=== PATIENT | female | born 1990 | race Hispanic/Latino ===

== ENCOUNTER 2016-07-04 21:14 | Emergency (ER) | payer OTHER, SELFPAY ==
[2016-07-04] MEDS ORDERED: Ketorolac Tromethamine 30 MG/ML VIAL ONE (21:45)
[2016-07-04 22:06] LABS: #Basophils 0.1 thou/uL (0.0-0.2); #Eosinphils 0.3 thou/uL (0.0-0.7); #Lymphocytes 2.7 thou/uL (1.20-3.40); #Monocytes 0.6 thou/uL (0.11-0.59); #Neutrophils 3.8 thou/uL (1.40-6.50); %Basophils 1.5 % (0.0-1.0); %Eosinophils 4.5 % (0.0-10.0); Hematocrit 37.7 % (36.0-47.0); Mean Platelet Volume 5.8 fL (7.4-10.4); Red Blood Cell (RBC) Count 4.09 mill/uL (4.20-5.40); White Blood Cell (WBC) Count 7.6 thou/uL (4.8-10.8)
[2016-07-04 22:14] LABS: Bilirubin Negative (Negative); Blood, Urine Negative (Negative); Glucose, Urine (Dipstick) Negative (Negative); Ketone, Urine Negative (Negative); Nitrite Negative (Negative); Protein, Urine (Dipstick) Negative (Neg-Trace); Urobilinogen 0.2 mg/dL (0.2-1.0)
[2016-07-04 22:19] LABS: ALT (SGPT) 22 U/L (0-55); AST (SGOT) 18 U/L (5-34); Alkaline Phosphatase 58 U/L (40-150); Anion Gap 13 mmol/L (10-20); BUN (Urea Nitrogen) 14 mg/dL (7.0-18.7); Bilirubin, Total 0.3 mg/dL (0.2-1.2); Calc. Creatinine Clearance 0 mL/min (70-130); Calcium 8.9 mg/dL (7.8-10.44); Carbon Dioxide 20 mmol/L (22-29); Chloride 110 mmol/L (98-107); Estimated GFR-MDRD Greater than 90; Lipase 36 U/L (8-78); Protein, Total 7.2 g/dL (6.0-8.3)
[2016-07-04 22:24] LABS: Bacteria/HPF 2+ HPF (None Seen); RBC/HPF 0-3 HPF (0-3); Squamous Epithelial 0-3 HPF (0-3)
[2016-07-04] MEDS ORDERED: cefTRIAXone\\ROCEPHIN 1 GM VIAL ONE (23:47)
[2016-07-04] MEDS ORDERED: Sodium Chloride 0.9% 100 ML ONE (23:47)
--- NOTE | 2016-07-05 00:34 | ERRECORD ---
[facility] EMERGENCY RECORD HPI FLANK PAIN (21:54 MBRI) CHIEF COMPLAINT: Patient presents for evaluation of flank pain, on the right. HISTORIAN: History provided by patient. LOCATION FEMALE: Symptoms are localized, most severe in the right flank, Radiation, back to front, No migration of pain. QUALITY: Pain is sharp in nature, described as shooting. SEVERITY: Maximum severity of symptoms severe, Currently symptoms are moderate. TIME COURSE: Sudden onset of symptoms, 2, weeks ago, Symptoms are worsening, are intermittent, This episode started tonight and continued upon her arrival to the ED. No prior evaluation for this pain. She did call the ambulance for it one week ago and the paramedics told her it was possible PNA or anxiety per the patient. ASSOCIATED WITH FEMALE: No associated recent antibiotic use, No associated chills, No associated constipation, No associated diarrhea, No associated fever, Associated with flank pain, on the right, No associated groin pain, No associated hematemesis, No associated hematuria, Associated with loss of appetite, Associated with nausea, No associated trauma, No associated recent travel, No associated inability to tolerate oral intake, Associated with urinary tract infection signs or symptoms, frequency, No associated vomiting, No associated vaginal discharge, No associated vaginal bleeding. EXACERBATED BY: Patient's condition exacerbated by nothing. RELIEVED BY: Patient's condition relieved by nothing. ROS (21:54 MBRI) CONSTITUTIONAL: Negative constitutional review of systems, Historian denies chills, denies fever. EYES: Negative eye review of systems. ENT: Historian denies rhinorrhea, denies sore throat. CARDIOVASCULAR: Historian denies chest pain, denies dyspnea on exertion. RESPIRATORY: Historian denies cough, denies shortness of breath. GI: Negative gastrointestinal review of systems, Historian denies abdominal pain, denies diarrhea, denies nausea, denies vomiting. GENITOURINARY FEMALE: Historian reports dysuria, reports frequency, denies hematuria, denies incontinence, denies urine output changes, denies urinary retention. MUSCULOSKELETAL: Historian denies injury, Denies any musculoskeletal pain. SKIN: Negative skin review of systems, Historian denies skin changes. NEUROLOGIC: Negative neurologic review of systems, Historian denies focal weakness, denies sensory changes. HEMO/LYMPHATIC: Historian denies abnormal blood clotting, denies easy bruising. &a-1R&a+25V*p+0X*[id number]*c202B*c15G*c2P*p-0X&a-25V&a+1R Name: Izzy Rodriguez : 1990 F25 MedRec: [id number] AcctNum: [id number] Prepared: MonJul 05, 2016 09:29 by Interface Page 1 of 4 pMD [facility] EMERGENCY RECORD PAST MEDICAL HISTORY (21:31 MVIL) MEDICAL HISTORY: No past medical history, No past medical history. FEMALE SURGICAL HISTORY: Patient has no surgical history, Patient has no surgical history. PSYCHIATRIC HISTORY: Notes: HX OF ANXIETY, Psychiatric history includes, depression. SOCIAL HISTORY: Patient denies alcohol use, Patient denies drug use, Patient has no smoking history, Patient denies alcohol use, Patient denies drug use, Patient has no smoking history. KNOWN ALLERGIES No Known Allergies CURRENT MEDICATIONS (MonJul 05, 2016 00:19 CVAN) None VITAL SIGNS VITAL SIGNS: BP: 136/83, Pulse: 87, Resp: 20, Temp: 98.6 (Oral), Pain: 9, O2 sat: 98 on Room Air, Time: 07/04/2016 21:25. (21:25 MVIL) BP: 101/61, Pulse: 76, Resp: 18, Temp: 98.4 (Oral), O2 sat: 99 on Room Air, Time: 07/05/2016 00:13. (MonJul 05, 2016 00:13 CVAN) PHYSICAL EXAM (21:54 MBRI) CONSTITUTIONAL: Vital Signs Reviewed, Nursing notes reviewed. HEAD: Head exam included findings of head atraumatic, normocephalic. EYES: Eye exam included findings of eyelids normal to inspection, Pupils equally round and reactive to light, Extraocular muscles intact. ENT: Pharynx exam normal, Mouth exam normal. NECK: Neck exam normal, no cervical adenopathy, no tenderness. RESPIRATORY CHEST: Respiratory exam included findings of no respiratory distress, Breath sounds clear, No wheezing, No rales, No rhonchi. CARDIOVASCULAR: Cardiovascular exam included findings of heart rate regular rate and rhythm, Heart sounds normal, Carotids normal. ABDOMEN FEMALE: Abdominal exam included findings of abdomen nontender, Bowel sounds normal, no distension, no mass, no pulsatile masses, no peritoneal signs, no rigidity, no guarding, no rebound. BACK: Back exam included findings of normal inspection, Costovertebral angle tenderness, on the right. UPPER EXTREMITY: Upper extremity exam included findings of inspection normal, Radial pulse normal, no cyanosis, no clubbing, no edema. LOWER EXTREMITY: Lower extremity exam included findings of inspection normal, femoral pulses normal, no cyanosis, no clubbing, no edema, no tenderness noted. NEURO: Neuro exam findings include patient oriented to person, &a-1R&a+25V*p+0X*[id number]*c202B*c15G*c2P*p-0X&a-25V&a+1R Name: Izzy Rodriguez : 1990 F25 MedRec: [id number] AcctNum: [id number] Prepared: MonJul 05, 2016 09:29 by Interface Page 2 of 4 pMD [facility] EMERGENCY RECORD place and time, Speech normal, no focal motor deficits. SKIN: Skin exam included findings of skin warm, dry, and normal in color. RADIOLOGYINTERPRETATION (23:39 MBRI) ABDOMEN: Abdomen/pelvis CT scan, without contrast negative, no appendicitis, no diverticulitis, no kidney stones, no obstruction, no free air, no hydronephrosis. DRIER TENDER NAPHTHALENE: Preliminary review of CT scans by, Radiologist. MEDICATION ADMINISTRATION SUMMARY Drug Name: cefTRIAXone injection, Dose Ordered: 1 g, Route: IV Piggy Back, Status: Given, Time: 23:50 07/04/2016, Drug Name: ketorolac injection, Dose Ordered: 30 mg, Route: IV Push, Status: Given, Time: 21:58 07/04/2016, Drug Name: sodium chloride 0.9 % intravenous, Dose Ordered: 1 L, Route: IV Fluid Infusion, Status: Given, Time: 21:57 07/04/2016, Detailed record available in Medication Service section. DOCTOR NOTES (23:40 MBRI) TEXT: Pt with Abd pain/flank pain, improved at this time. Studies reveal no issues requiring inpt hosp treatment. Pt eval is currently benign and no surgical etiology suspected. No suspected appendicitis, GB disease, abscess, SBO, perforation, peritonitis, or vasc etiology suspected at this time. Plan of care discussed with pt and they state understanding of the reasons for follow-up and/or return to ED for eval. Pt is currently stable for d/c home. Will continue home abx with suspected UTI based on findings noted tonight. PROBLEM LIST No recorded problems DIAGNOSIS (23:44 MBRI) FINAL: PRIMARY: pyelonephritis, ADDITIONAL: back pain. PRESCRIPTION (23:43 MBRI) acetaminophen-codeine: TABLET : 300 mg-30 mg : ORAL : Quantity: 1 Unit: tab(s) Route: ORAL Schedule: every 4 hours prn Dispense: 20 May substitute. Refills: No Refills . NOTES: No refills. Cipro tablet: TABLET : 500 mg : ORAL : Quantity: 1 Unit: tab(s) Route: ORAL Schedule: 2 times a day Dispense: 14 May substitute. Refills: No Refills . NOTES: ^s=No refills No refills. Motrin: TABLET : 600 mg : ORAL : Quantity: 1 Unit: &a-1R&a+25V*p+0X*[id number]*c202B*c15G*c2P*p-0X&a-25V&a+1R Name: Izzy Rodriguez : 1990 F25 MedRec: [id number] AcctNum: [id number] Prepared: MonJul 05, 2016 09:29 by Interface Page 3 of 4 pMD [facility] EMERGENCY RECORD tab(s) Route: ORAL Schedule: every 6 hours PRN Dispense: 60 May substitute. Refills: No Refills POTENTIAL CONTRAINDICATED INTERACTION: ketorolac injection (ketorolac tromethamine) Override Rationale: Patient no longer on medication. NOTES: ^s=^s=No refills No refills No refills. DISPOSITION PATIENT: Disposition Type: Discharge, Disposition: *Discharge Home, Condition: Improved. (23:44 MBRI) Patient left the department. (MonJul 05, 2016 00:26 BRYON) Temple: BRYON=LUÍS Gottlieb Catherine MBRI=DO Dawn Matthew MVIL=LUÍS Alexander, Mary &a-1R&a+25V*p+0X*[id number]*c202B*c15G*c2P*p-0X&a-25V&a+1R Name: Izzy Rodriguez : 1990 F25 MedRec: [id number] AcctNum: [id number] Prepared: Kim Jul 05, 2016 09:29 by Interface Page 4 of 4 pMD MTDD
--- NOTE | 2016-07-05 00:43 | PICIS ---
[facility] EMERGENCY RECORD TRIAGE (MonJul 04, 2016 21:26 MVIL) TRIAGE NOTES: C/O RIGHT FLANK PAIN RADIATING TO RUQ ABD. NO URINARY SYMPTOMS. (MonJul 04, 2016 21:26 MVIL) PATIENT: NAME: Izzy Rodriguez, AGE: 25, GENDER: female, : Sat 1990, TIME OF GREET: MonJul 04, 2016 21:15, PREFERRED LANGUAGE: [place], ETHNICITY: or , ECODE BILLING MAP: [facility] ER, KG WEIGHT: 67.13, HEIGHT/LENGTH: 152.40cm, BMI: 28.90, , , PERSON ID: [id number], PCP: [facility]. (MonJul 04, 2016 21:26 MVIL) Zip Code: [address], PHONE: , PAYMENT: [employer] Self Pay. (21:39) COMPLAINT: RIGHT FLANK PAIN. (MonJul 04, 2016 21:26 MVIL) ADMISSION: URGENCY: 3 Urgent, ADMISSION SOURCE: Home, TRANSPORT: CAR, BED: ER -04. (MonJul 04, 2016 21:26 MVIL) ASSESSMENT: Assessment: C/O RIGHT FLANK PAIN RADIATING TO RUQ ABD X 1 WEEK INTERMITTENT. DENIES ANY N/V/D OR FEVER. AFEBRILE NOW., Symptoms began 06/27/2016 21:28, Symptoms began 1 week ago. (21:31 MVIL) PAIN: Patient complains of pain described as, penetrating, pressure, on a scale 0-10 patient rates pain as 9, Pain is intermittent, No aggravating factors, No relieving factors. (21:31 MVIL) IMMUNIZATIONS: Flu vaccine not up to date, Tetanus not up to date, Pneumococcal vaccine not up to date. (21:31 MVIL) SIRS SCORING: Heart Rate 55-109 (0), Temp range 96.8-101.1 (0), respiratory rate 12-24 (0), Mental Status altered: no (0). (21:31 MVIL) PROVIDERS: TRIAGE NURSE: Mary Alexander RN. (MonJul 04, 2016 21:26 MVIL) VITAL SIGNS: BP 136/83, Pulse 87, Resp 20, Temp 98.6, (Oral), Pain 9, O2 Sat 98, on Room Air, Time 07/04/2016 21:25. (21:25 MVIL) KNOWN ALLERGIES No Known Allergies CURRENT MEDICATIONS (MonJul 05, 2016 00:19 CVAN) None VITAL SIGNS VITAL SIGNS: BP: 136/83, Pulse: 87, Resp: 20, Temp: 98.6 (Oral), Pain: 9, O2 sat: 98 on Room Air, Time: 07/04/2016 21:25. (21:25 MVIL) BP: 101/61, Pulse: 76, Resp: 18, Temp: 98.4 (Oral), O2 sat: 99 on Room Air, Time: 07/05/2016 00:13. (MonJul 05, 2016 00:13 CVAN) NURSING ASSESSMENT: ABDOMEN (21:40 MVIL) CONSTITUTIONAL: Patient arrives, via hospital wheelchair, Gait steady, History obtained from patient, Patient appears comfortable, Patient cooperative, Patient alert, Oriented to person, place and time, Skin warm, Skin dry, Skin normal in color, Mucous membranes &a-1R&a+25V*p+0X*x9238H*c202B*c15G*c2P*p-0X&a-25V&a+1R Name: Izzy Rodriguez : 1990 F25 MedRec: [id number] AcctNum: [id number] Prepared: MonJul 05, 2016 00:37 by Interface Page 1 of 10 pMD [facility] EMERGENCY RECORD pink, Mucous membranes moist, Patient is well-groomed, Patient complains of C/O RIGHT FLANK PAIN, X1-2 WEEKS INTERMITTENT. PAIN: penetrating pain, pressure pain, to the right upper quadrant, to the right flank, Onset of pain 07/04/2016 21:42, on a scale 0-10 patient rates pain as 9, Pain exacerbated by nothing, Nothing has been tried to alleviate the pain. ABDOMEN: Abdomen assessment findings include abdomen symmetrical, tender, to the right flank, no associated nausea, no associated vomiting, no associated diarrhea. SAFETY: Side rails up, Cart/Stretcher in lowest position, Family at bedside, Call light within reach, Hospital ID band on. NURSING PROCEDURE: DISCHARGE NOTE (MonJul 05, 2016 00:19 KSPL) DISCHARGE: Patient discharged to home, ambulating without assistance, family driving, accompanied by //partner, Summary of Care printed/ provided, Patient requested and was provided an electronic copy of Discharge Instructions, Transition record given to patient, Discharge instructions given to patient, Discharge instructions given to spouse, Simple or moderate discharge teaching performed, by Vangie STALEY, follow up with pcp in 7 days, info on meds prescribed, take meds as prescribed., Prescriptions given and instructions on side effects given, Name of prescription(s) given: motrin, cipro, tylenol-codeine, Medication reconciliation form given, Above person(s) verbalized understanding of discharge instructions and follow-up care, Patient treated and evaluated by physician. BELONGINGS: Belongings and valuables with patient at time of discharge include:, Belongings remain with patient, Valuables remain with patient. NURSING PROCEDURE: IV PATIENT IDENITIFIER: Patient actively involved in identification process, Patient's identity verified by patient stating name, Patient's identity verified by hospital ID bracelet. (21:59 MVIL) IV SITE 1: IV therapy indicated for hydration, IV therapy indicated for medication administration, IV established. (21:59 MVIL) FOLLOW-UP SITE 1: After procedure, 2x3 ensure dressing applied. (21:59 MVIL) After procedure, no drainage at IV site, After procedure, no swelling at IV site, After procedure, no redness at IV site, IV discontinued, due to patient being discharged, catheter intact. (MonJul 05, 2016 00:16 CVAN) SAFETY: Side rails up, Cart/Stretcher in lowest position, Family at bedside, Call light within reach, Hospital ID band on. (21:59 MVIL) ORDER DETAILS Order Name: CBC with Differential, Status: Active, Time: 21:31 &a-1R&a+25V*p+0X*w6831T*c202B*c15G*c2P*p-0X&a-25V&a+1R Name: Izzy Rodriguez : 1990 F25 MedRec: [id number] AcctNum: [id number] Prepared: MonJul 05, 2016 00:37 by Interface Page 2 of 10 pMD [facility] EMERGENCY RECORD 07/04/2016, User: MBRI, - Ordered for: DO Dawn Matthew, - Entered by: DO Dawn Matthew - Shanti Jul 04, 2016 21:31, - Quantity: 1, Order Name: Comprehensive Metabolic Panel, Status: Active, Time: 21:31 07/04/2016, User: MBRI, - Ordered for: DO Dawn Matthew, - Entered by: DO Dawn Matthew - Shanti Jul 04, 2016 21:31, - Quantity: 1, Order Name: CT Stone Protocol, Status: Active, Time: 22:33 07/04/2016, User: MBRI, - Ordered for: DO Dawn Matthew, - Entered by: DO Dawn Matthew - Shanti Jul 04, 2016 22:33, - Quantity: 1, Order Name: Lipase, Status: Active, Time: 21:31 07/04/2016, User: MBRI, - Ordered for: DO Dawn Matthew, - Entered by: DO Dawn Matthew - Shanti Jul 04, 2016 21:31, - Quantity: 1, Order Name: Test, Urine (BHCG), Status: Active, Time: 21:31 07/04/2016, User: MBRI, - Ordered for: DO Dawn Matthew, - Entered by: DO Dawn Matthew - Shanti Jul 04, 2016 21:31, - Quantity: 1, Order Name: SALINE LOCK, Status: Done, Time: 21:58 07/04/2016, User: MVIL, - Ordered for: DO Dawn Matthew, - Entered by: DO Dawn Matthew - Shanti Jul 04, 2016 21:31, - Quantity: 1, Order Name: Urinalysis w/ Rflx Microscopic, Status: Active, Time: 21:31 07/04/2016, User: MBRI, - Ordered for: DO Dawn Matthew, - Entered by: DO Dawn Matthew - Shanti Jul 04, 2016 21:31, - Quantity: 1. MEDICATION ADMINISTRATION SUMMARY Drug Name: cefTRIAXone injection, Dose Ordered: 1 g, Route: IV Piggy Back, Status: Given, Time: 23:50 07/04/2016, Drug Name: ketorolac injection, Dose Ordered: 30 mg, Route: IV Push, Status: Given, Time: 21:58 07/04/2016, Drug Name: sodium chloride 0.9 % intravenous, Dose Ordered: 1 L, Route: IV Fluid Infusion, Status: Given, Time: 21:57 07/04/2016, Detailed record available in Medication Service section. MEDICATION SERVICE cefTRIAXone injection: Order: cefTRIAXone injection (ceftriaxone sodium) - Dose: 1 g : IV Piggy Back Ordered by: Jay Dawn DO Entered by: Jay Dawn DO MonJul 04, 2016 23:39 Documented as given by: Karen Gottlieb RN MonJul 04, 2016 23:50 &a-1R&a+25V*p+0X*d2754P*c202B*c15G*c2P*p-0X&a-25V&a+1R Name: Izzy Rodriguez : 1990 F25 MedRec: [id number] AcctNum: [id number] Prepared: MonJul 05, 2016 00:37 by Interface Page 3 of 10 pMD [facility] EMERGENCY RECORD Patient, Medication, Dose, Route and Time verified prior to administration. Amount given: 1 g, IV SITE #1 IVPB or drip, initial infusion, IVPB mixed in: 100ml, Fluid: 0.9NS, via primary tubing, at 200 ml/hr, Connections checked prior to administration, Line traced prior to administration, Catheter placement confirmed via flush prior to administration, IV site without signs or symptoms of infiltration during medication administration, No swelling during administration, No drainage during administration, IV flushed after administration, Correct patient, time, route, dose and medication confirmed prior to administration, Patient advised of actions and side-effects prior to administration, Allergies confirmed and medications reviewed prior to administration, Patient in position of comfort, Side rails up, Cart in lowest position, Family at bedside, Call light in reach. : Follow Up : _IV SITE #1:_, Medication infusion discontinued, on MonJul 05, 2016 00:13, 25 minutes, ., Total amount infused: 100 ml, IV Discontinued with catheter intact, IV Line flushed after administration. (MonJul 05, 2016 00:13 CVAN) ketorolac injection: Order: ketorolac injection (ketorolac tromethamine) - Dose: 30 mg : IV Push Ordered by: Jay Dawn DO Entered by: Jay Dawn DO MonJul 04, 2016 21:40 , Acknowledged by: Vangie Fischer RN MonJul 04, 2016 21:44 Documented as given by: Mary Alexander RN MonJul 04, 2016 21:58 Patient, Medication, Dose, Route and Time verified prior to administration. Amount given: 30MG, IV SITE #1 IVP, initial medication, Catheter placement confirmed via flush prior to administration, IV site without signs or symptoms of infiltration during medication administration, No swelling during administration, No drainage during administration, IV flushed after administration, Correct patient, time, route, dose and medication confirmed prior to administration, Patient advised of actions and side-effects prior to administration, Allergies confirmed and medications reviewed prior to administration, Patient in position of comfort, Side rails up, Cart in lowest position, Family at bedside. sodium chloride 0.9 % intravenous: Order: sodium chloride 0.9 % intravenous (0.9 % sodium chloride) - Dose: 1 L : IV Fluid Infusion Ordered by: Jay Dawn DO Entered by: Jay Dawn DO MonJul 04, 2016 21:40 , Acknowledged by: Vangie Fischer RN MonJul 04, 2016 21:44 Documented as given by: Mary Alexander RN MonJul 04, 2016 21:57 Patient, Medication, Dose, Route and Time verified prior to administration. Amount given: 1000MLS, IV SITE #1 IV fluids established for hydration, IV SITE #1 into right forearm, via primary tubing, Catheter placement confirmed via flush prior to administration, IV &a-1R&a+25V*p+0X*q5409R*c202B*c15G*c2P*p-0X&a-25V&a+1R Name: Izzy Rodriguez : 1990 F25 MedRec: [id number] AcctNum: [id number] Prepared: MonJul 05, 2016 00:37 by Interface Page 4 of 10 pMD [facility] EMERGENCY RECORD site without signs or symptoms of infiltration during medication administration, No swelling during administration, No drainage during administration, IV flushed after administration, Correct patient, time, route, dose and medication confirmed prior to administration, Patient advised of actions and side-effects prior to administration, Allergies confirmed and medications reviewed prior to administration. HPI FLANK PAIN (21:54 MBRI) CHIEF COMPLAINT: Patient presents for evaluation of flank pain, on the right. HISTORIAN: History provided by patient. LOCATION FEMALE: Symptoms are localized, most severe in the right flank, Radiation, back to front, No migration of pain. QUALITY: Pain is sharp in nature, described as shooting. SEVERITY: Maximum severity of symptoms severe, Currently symptoms are moderate. TIME COURSE: Sudden onset of symptoms, 2, weeks ago, Symptoms are worsening, are intermittent, This episode started tonight and continued upon her arrival to the ED. No prior evaluation for this pain. She did call the ambulance for it one week ago and the paramedics told her it was possible PNA or anxiety per the patient. ASSOCIATED WITH FEMALE: No associated recent antibiotic use, No associated chills, No associated constipation, No associated diarrhea, No associated fever, Associated with flank pain, on the right, No associated groin pain, No associated hematemesis, No associated hematuria, Associated with loss of appetite, Associated with nausea, No associated trauma, No associated recent travel, No associated inability to tolerate oral intake, Associated with urinary tract infection signs or symptoms, frequency, No associated vomiting, No associated vaginal discharge, No associated vaginal bleeding. EXACERBATED BY: Patient's condition exacerbated by nothing. RELIEVED BY: Patient's condition relieved by nothing. ROS (21:54 MBRI) CONSTITUTIONAL: Negative constitutional review of systems, Historian denies chills, denies fever. EYES: Negative eye review of systems. ENT: Historian denies rhinorrhea, denies sore throat. CARDIOVASCULAR: Historian denies chest pain, denies dyspnea on exertion. RESPIRATORY: Historian denies cough, denies shortness of breath. GI: Negative gastrointestinal review of systems, Historian denies abdominal pain, denies diarrhea, denies nausea, denies vomiting. GENITOURINARY FEMALE: Historian reports dysuria, reports frequency, denies hematuria, denies incontinence, denies urine output changes, denies urinary retention. MUSCULOSKELETAL: Historian denies injury, Denies any &a-1R&a+25V*p+0X*z4939M*c202B*c15G*c2P*p-0X&a-25V&a+1R Name: Izzy Rodriguez : 1990 F25 MedRec: [id number] AcctNum: [id number] Prepared: MonJul 05, 2016 00:37 by Interface Page 5 of 10 pMD [facility] EMERGENCY RECORD musculoskeletal pain. SKIN: Negative skin review of systems, Historian denies skin changes. NEUROLOGIC: Negative neurologic review of systems, Historian denies focal weakness, denies sensory changes. HEMO/LYMPHATIC: Historian denies abnormal blood clotting, denies easy bruising. PAST MEDICAL HISTORY (21:31 MVIL) MEDICAL HISTORY: No past medical history, No past medical history. FEMALE SURGICAL HISTORY: Patient has no surgical history, Patient has no surgical history. PSYCHIATRIC HISTORY: Notes: HX OF ANXIETY, Psychiatric history includes, depression. SOCIAL HISTORY: Patient denies alcohol use, Patient denies drug use, Patient has no smoking history, Patient denies alcohol use, Patient denies drug use, Patient has no smoking history. PHYSICAL EXAM (21:54 MBRI) CONSTITUTIONAL: Vital Signs Reviewed, Nursing notes reviewed. HEAD: Head exam included findings of head atraumatic, normocephalic. EYES: Eye exam included findings of eyelids normal to inspection, Pupils equally round and reactive to light, Extraocular muscles intact. ENT: Pharynx exam normal, Mouth exam normal. NECK: Neck exam normal, no cervical adenopathy, no tenderness. RESPIRATORY CHEST: Respiratory exam included findings of no respiratory distress, Breath sounds clear, No wheezing, No rales, No rhonchi. CARDIOVASCULAR: Cardiovascular exam included findings of heart rate regular rate and rhythm, Heart sounds normal, Carotids normal. ABDOMEN FEMALE: Abdominal exam included findings of abdomen nontender, Bowel sounds normal, no distension, no mass, no pulsatile masses, no peritoneal signs, no rigidity, no guarding, no rebound. BACK: Back exam included findings of normal inspection, Costovertebral angle tenderness, on the right. UPPER EXTREMITY: Upper extremity exam included findings of inspection normal, Radial pulse normal, no cyanosis, no clubbing, no edema. LOWER EXTREMITY: Lower extremity exam included findings of inspection normal, femoral pulses normal, no cyanosis, no clubbing, no edema, no tenderness noted. NEURO: Neuro exam findings include patient oriented to person, place and time, Speech normal, no focal motor deficits. SKIN: Skin exam included findings of skin warm, dry, and normal in color. LAB INTERPRETATION (23:39 MBRI) &a-1R&a+25V*p+0X*h4232U*c202B*c15G*c2P*p-0X&a-25V&a+1R Name: Izzy Rodriguez : 1990 F25 MedRec: [id number] AcctNum: [id number] Prepared: MonJul 05, 2016 00:37 by Interface Page 6 of 10 pMD [facility] EMERGENCY RECORD INTERPRETATION: I reviewed the lab results. EVENTS TRANSFER: Triage to Emergency Emergency Room -04. (MonJul 04, 2016 21:26 MVIL) Removed from Emergency Emergency Room -04. (MonJul 05, 2016 00:26 CVAN) RADIOLOGYINTERPRETATION (23:39 MBRI) ABDOMEN: Abdomen/pelvis CT scan, without contrast negative, no appendicitis, no diverticulitis, no kidney stones, no obstruction, no free air, no hydronephrosis. WAX CUTTER: Preliminary review of CT scans by, Radiologist. O2SAT INTERPRETATION (21:31 MBRI) O2SAT: Oxygen saturation interpretation: Normal. DOCTOR NOTES (23:40 MBRI) TEXT: Pt with Abd pain/flank pain, improved at this time. Studies reveal no issues requiring inpt hosp treatment. Pt eval is currently benign and no surgical etiology suspected. No suspected appendicitis, GB disease, abscess, SBO, perforation, peritonitis, or vasc etiology suspected at this time. Plan of care discussed with pt and they state understanding of the reasons for follow-up and/or return to ED for eval. Pt is currently stable for d/c home. Will continue home abx with suspected UTI based on findings noted tonight. PROBLEM LIST No recorded problems DIAGNOSIS (23:44 MBRI) FINAL: PRIMARY: pyelonephritis, ADDITIONAL: back pain. DISPOSITION PATIENT: Disposition Type: Discharge, Disposition: *Discharge Home, Condition: Improved. (23:44 MBRI) Patient left the department. (MonJul 05, 2016 00:26 CVAN) INSTRUCTION (23:46 MBRI) DISCHARGE: UTI PYELONEPHRITIS FEMALE ADULT. FOLLOWUP: [facility], [facility], [address] [facility] [place] [address], , Follow up with Primary Care Physician in 7 days. SPECIAL: Please return for any further issues or concerns, we would be happy to see you. We hope you feel better soon. Follow-up with your PCP in a week for recheck. PRESCRIPTION (23:43 MBRI) &a-1R&a+25V*p+0X*c9559A*c202B*c15G*c2P*p-0X&a-25V&a+1R Name: Izzy Rodriguez : 1990 F25 MedRec: [id number] AcctNum: [id number] Prepared: MonJul 05, 2016 00:37 by Interface Page 7 of 10 pMD [facility] EMERGENCY RECORD acetaminophen-codeine: TABLET : 300 mg-30 mg : ORAL : Quantity: 1 Unit: tab(s) Route: ORAL Schedule: every 4 hours prn Dispense: 20 May substitute. Refills: No Refills . NOTES: No refills. Cipro tablet: TABLET : 500 mg : ORAL : Quantity: 1 Unit: tab(s) Route: ORAL Schedule: 2 times a day Dispense: 14 May substitute. Refills: No Refills . NOTES: ^s=No refills No refills. Motrin: TABLET : 600 mg : ORAL : Quantity: 1 Unit: tab(s) Route: ORAL Schedule: every 6 hours PRN Dispense: 60 May substitute. Refills: No Refills POTENTIAL CONTRAINDICATED INTERACTION: ketorolac injection (ketorolac tromethamine) Override Rationale: Patient no longer on medication. NOTES: ^s=^s=No refills No refills No refills. IMAGING *SUPPLY CHARGE SHEET: Image captured from scanner. (MonJul 05, 2016 00:23 CVAN) *DISCHARGE INSTRUCTIONS RECEIPT: Image captured from scanner. (MonJul 05, 2016 00:27 KSPL) Page 2 added. Image captured from scanner. (MonJul 05, 2016 00:28 KSPL) RESULTS LABORATORY: Lipase Collection DT: MonJul 04, 2016 22:02, Lipase 36 U/L, Range (8-78). (22:24 MBRI) Comprehensive Metabolic Panel Collection DT: MonJul 04, 2016 22:02, Sodium 139 mmol/L, Range (136-145), Potassium 3.6 mmol/L, Range (3.5-5.1), *Chloride 110 - H mmol/L, Range (98-107), *Carbon Dioxide 20 - L mmol/L, Range (22-29), Anion Gap 13 mmol/L, Range (10-20), BUN (Urea Nitrogen) 14 mg/dL, Range (7.0-18.7), Creatinine 0.74 mg/dL, Range (0.6-1.1), Estimated GFR-MDRD Greater than 90 , Reference Range for Estimated GFR: Greater than 90, mL/min/1.73 m2 NOTE: The MDRD equation has not been validated for use, with the elderly (over 70 years of age), women, patients with, serious comorbid condition or persons with extremes of body size, muscle, mass, or nutritional status. , Glucose 101 mg/dL, Range (70-105), Calcium 8.9 mg/dL, Range (7.8-10.44), Bilirubin, Total 0.3 mg/dL, Range (0.2-1.2), &a-1R&a+25V*p+0X*p3141G*c202B*c15G*c2P*p-0X&a-25V&a+1R Name: Izzy Rodriguez : 1990 F25 MedRec: [id number] AcctNum: [id number] Prepared: MonJul 05, 2016 00:37 by Interface Page 8 of 10 pMD [facility] EMERGENCY RECORD Protein, Total 7.2 g/dL, Range (6.0-8.3), NOTE: Plasma values are generally 0.3 to 0.5 g/dL higher than serum values, due to the presence of fibrinogen. , Albumin 4.2 g/dL, Range (3.5-5.0), Globulin 3.0 g/dL, Range (2.4-3.5), Alb/Glob Ratio 1.4 g/dL, Range (1.2-2.2), Alkaline Phosphatase 58 U/L, Range (40-150), AST (SGOT) 18 U/L, Range (5-34), ALT (SGPT) 22 U/L, Range (0-55). (22:24 MBRI) Urinalysis w/ Rflx Microscopic Collection DT: MonJul 04, 2016 22:11, Color Light yellow , Range (Yellow), Clarity Clear , Range (Clear), Specific [place], Urine 1.020 , Range (1.005-1.030), pH, Urine 7.0 , Range (5.0-9.0), *Leukocyte Large - H , Range (Negative), Nitrite Negative , Range (Negative), Protein, Urine (Dipstick) Negative mg/dL, Range (Neg-Trace), Glucose, Urine (Dipstick) Negative mg/dL, Range (Negative), Ketone, Urine Negative mg/dL, Range (Negative), Urobilinogen 0.2 mg/dL, Range (0.2-1.0), Bilirubin Negative , Range (Negative), Blood, Urine Negative , Range (Negative). (22:24 MBRI) CBC with Differential Collection DT: MonJul 04, 2016 22:02, White Blood Cell (WBC) Count 7.6 thou/uL, Range (4.8-10.8), *Red Blood Cell (RBC) Count 4.09 - L mill/uL, Range (4.20-5.40), Hemoglobin 12.6 g/dL, Range (12.0-16.0), Hematocrit 37.7 %, Range (36.0-47.0), Mean Corpuscular Volume 92.3 fl, Range (81.0-99.0), Mean Corpuscular Hemoglobin 30.8 pg, Range (27.0-31.0), Mean Corpuscular HGB CONC 33.4 g/dL, Range (32.0-36.0), RBC Distribution Width 12.0 %, Range (11.5-14.5), Platelet Count 247 thou/uL, Range (130-400), *Mean Platelet Volume 5.8 - L fL, Range (7.4-10.4), %Neutrophils 50.2 %, Range (42.0-75.0), %Lymphocytes 35.8 %, Range (21.0-51.0), %Monocytes 8.0 %, Range (0.0-10.0), %Eosinophils 4.5 %, Range (0.0-10.0), *%Basophils 1.5 - H %, Range (0.0-1.0), #Neutrophils 3.8 thou/uL, Range (1.40-6.50), #Lymphocytes 2.7 thou/uL, Range (1.20-3.40), *#Monocytes 0.6 - H thou/uL, Range (0.11-0.59), #Eosinphils 0.3 thou/uL, Range (0.0-0.7), #Basophils 0.1 thou/uL, Range (0.0-0.2). (22:24 MBRI) Urine Microscopic Collection DT: MonJul 04, 2016 22:11, RBC/HPF 0-3 HPF, Range (0-3), *WBC/HPF 4-6 - H HPF, Range (0-3), Squamous Epithelial 0-3 HPF, Range (0-3), *Bacteria/HPF 2+ - H HPF, Range (None Seen). (22:32 MBRI) Urinalysis w/ Rflx Microscopic Collection DT: MonJul 04, 2016 22:11, Color Light yellow , Range (Yellow), &a-1R&a+25V*p+0X*y0764H*c202B*c15G*c2P*p-0X&a-25V&a+1R Name: Izzy Rodriguez : 1990 F25 MedRec: [id number] AcctNum: [id number] Prepared: MonJul 05, 2016 00:37 by Interface Page 9 of 10 pMD [facility] EMERGENCY RECORD Clarity Clear , Range (Clear), Specific [place], Urine 1.020 , Range (1.005-1.030), pH, Urine 7.0 , Range (5.0-9.0), *Leukocyte Large - H , Range (Negative), Nitrite Negative , Range (Negative), Protein, Urine (Dipstick) Negative mg/dL, Range (Neg-Trace), Glucose, Urine (Dipstick) Negative mg/dL, Range (Negative), Ketone, Urine Negative mg/dL, Range (Negative), Urobilinogen 0.2 mg/dL, Range (0.2-1.0), Bilirubin Negative , Range (Negative), Blood, Urine Negative , Range (Negative). (22:32 MBRI) Test, Urine (BHCG) Collection DT: MonJul 04, 2016 22:35, Test - Urine (BHCG) NEGATIVE , Range (NEGATIVE), Method of sensitivity- Indeterminant: results should be repeated, after 48 hours. Positive: results may be detected as early as 4-5 days before a first missed menses. Elimination of BHCG-, Elimination following first trimester D&C: 29-44 Days , Elimination following term : 8-24 Days , Specific Marathon 1.012 , Range (1.002-1.036), A dilute urine specimen may, not contain phlebotomy services representative levels of hCG. If is still, suspected, a first morning urine specimen OR a random blood specimen should, be obtained from the patient 48-72 hours later and re-tested. , . (22:43 [facility]) Temple: BRYON=LUÍS Gottlieb Catherine KSPL=LUÍS Fishcer, Vangie MBRI=DO Dawn Matthew MVIL=LUÍS Alexander, Mary &a-1R&a+25V*p+0X*u6185E*c202B*c15G*c2P*p-0X&a-25V&a+1R Name: Izzy Rodriguez : 1990 F25 MedRec: [id number] AcctNum: [id number] Prepared: MonJul 05, 2016 00:37 by Interface Page 10 of 10 pMD [facility] MEDICATION RECONCILIATION You were seen in the Emergency Department on: MonJul 04, 2016 KNOWN ALLERGIES No Known Allergies MEDICATIONS GIVEN WHILE IN THE EMERGENCY DEPARTMENT sodium chloride 0.9 % intravenous (0.9 % sodium chloride) - Dose: 1 liter(s) : IV Fluid Infusion ketorolac injection (ketorolac tromethamine) - Dose: 30 milligram(s) : IV Push cefTRIAXone injection (ceftriaxone sodium) - Dose: 1 gram(s) : IV Piggy Back HOME MEDICATIONS None Notes from the emergency department Reviewed with family PRESCRIPTIONS (3) Printed (3) acetaminophen-codeine : TABLET : 300 mg-30 mg : ORAL Quantity: 1, Unit: tab(s), Route: ORAL, Schedule: every 4 hours prn, Dispense: 20 Cipro tablet : TABLET : 500 mg : ORAL Quantity: 1, Unit: tab(s), Route: ORAL, Schedule: 2 times a day, Dispense: 14 &a-1R&a+25V*p+0X*[id number]*c202B*c15G*c2P*p-0X&a-25V&a+1R Name: Izzy Rodriguez : 1990 F25 MedRec: [id number] AcctNum: [id number] Prepared: MonJul 05, 2016 00:37 by Interface pMD MOHIT
--- NOTE | 2016-07-05 00:49 | PICIS ---
[facility] EMERGENCY RECORD TRIAGE (MonJul 04, 2016 21:26 MVIL) TRIAGE NOTES: C/O RIGHT FLANK PAIN RADIATING TO RUQ ABD. NO URINARY SYMPTOMS. (MonJul 04, 2016 21:26 MVIL) PATIENT: NAME: Izzy Rodriguez, AGE: 25, GENDER: female, : Sat 1990, TIME OF GREET: MonJul 04, 2016 21:15, PREFERRED LANGUAGE: [place], ETHNICITY: or , ECODE BILLING MAP: [facility] ER, KG WEIGHT: 67.13, HEIGHT/LENGTH: 152.40cm, BMI: 28.90, , , PERSON ID: [id number], PCP: [facility]. (MonJul 04, 2016 21:26 MVIL) Zip Code: [address], PHONE: , PAYMENT: [employer] Self Pay. (21:39) COMPLAINT: RIGHT FLANK PAIN. (MonJul 04, 2016 21:26 MVIL) ADMISSION: URGENCY: 3 Urgent, ADMISSION SOURCE: Home, TRANSPORT: CAR, BED: ER -04. (MonJul 04, 2016 21:26 MVIL) ASSESSMENT: Assessment: C/O RIGHT FLANK PAIN RADIATING TO RUQ ABD X 1 WEEK INTERMITTENT. DENIES ANY N/V/D OR FEVER. AFEBRILE NOW., Symptoms began 06/27/2016 21:28, Symptoms began 1 week ago. (21:31 MVIL) PAIN: Patient complains of pain described as, penetrating, pressure, on a scale 0-10 patient rates pain as 9, Pain is intermittent, No aggravating factors, No relieving factors. (21:31 MVIL) IMMUNIZATIONS: Flu vaccine not up to date, Tetanus not up to date, Pneumococcal vaccine not up to date. (21:31 MVIL) SIRS SCORING: Heart Rate 55-109 (0), Temp range 96.8-101.1 (0), respiratory rate 12-24 (0), Mental Status altered: no (0). (21:31 MVIL) PROVIDERS: TRIAGE NURSE: Mary Alexander RN. (MonJul 04, 2016 21:26 MVIL) VITAL SIGNS: BP 136/83, Pulse 87, Resp 20, Temp 98.6, (Oral), Pain 9, O2 Sat 98, on Room Air, Time 07/04/2016 21:25. (21:25 MVIL) KNOWN ALLERGIES No Known Allergies CURRENT MEDICATIONS (MonJul 05, 2016 00:19 CVAN) None VITAL SIGNS VITAL SIGNS: BP: 136/83, Pulse: 87, Resp: 20, Temp: 98.6 (Oral), Pain: 9, O2 sat: 98 on Room Air, Time: 07/04/2016 21:25. (21:25 MVIL) BP: 101/61, Pulse: 76, Resp: 18, Temp: 98.4 (Oral), O2 sat: 99 on Room Air, Time: 07/05/2016 00:13. (MonJul 05, 2016 00:13 CVAN) NURSING ASSESSMENT: ABDOMEN (21:40 MVIL) CONSTITUTIONAL: Patient arrives, via hospital wheelchair, Gait steady, History obtained from patient, Patient appears comfortable, Patient cooperative, Patient alert, Oriented to person, place and time, Skin warm, Skin dry, Skin normal in color, Mucous membranes &a-1R&a+25V*p+0X*i0311A*c202B*c15G*c2P*p-0X&a-25V&a+1R Name: Izzy Rodriguez : 1990 F25 MedRec: [id number] AcctNum: [id number] Prepared: MonJul 05, 2016 09:29 by Interface Page 1 of 10 pMD [facility] EMERGENCY RECORD pink, Mucous membranes moist, Patient is well-groomed, Patient complains of C/O RIGHT FLANK PAIN, X1-2 WEEKS INTERMITTENT. PAIN: penetrating pain, pressure pain, to the right upper quadrant, to the right flank, Onset of pain 07/04/2016 21:42, on a scale 0-10 patient rates pain as 9, Pain exacerbated by nothing, Nothing has been tried to alleviate the pain. ABDOMEN: Abdomen assessment findings include abdomen symmetrical, tender, to the right flank, no associated nausea, no associated vomiting, no associated diarrhea. SAFETY: Side rails up, Cart/Stretcher in lowest position, Family at bedside, Call light within reach, Hospital ID band on. NURSING PROCEDURE: DISCHARGE NOTE (MonJul 05, 2016 00:19 KSPL) DISCHARGE: Patient discharged to home, ambulating without assistance, family driving, accompanied by //partner, Summary of Care printed/ provided, Patient requested and was provided an electronic copy of Discharge Instructions, Transition record given to patient, Discharge instructions given to patient, Discharge instructions given to spouse, Simple or moderate discharge teaching performed, by Vangie STALEY, follow up with pcp in 7 days, info on meds prescribed, take meds as prescribed., Prescriptions given and instructions on side effects given, Name of prescription(s) given: motrin, cipro, tylenol-codeine, Medication reconciliation form given, Above person(s) verbalized understanding of discharge instructions and follow-up care, Patient treated and evaluated by physician. BELONGINGS: Belongings and valuables with patient at time of discharge include:, Belongings remain with patient, Valuables remain with patient. NURSING PROCEDURE: IV PATIENT IDENITIFIER: Patient actively involved in identification process, Patient's identity verified by patient stating name, Patient's identity verified by hospital ID bracelet. (21:59 MVIL) IV SITE 1: IV therapy indicated for hydration, IV therapy indicated for medication administration, IV established. (21:59 MVIL) FOLLOW-UP SITE 1: After procedure, 2x3 ensure dressing applied. (21:59 MVIL) After procedure, no drainage at IV site, After procedure, no swelling at IV site, After procedure, no redness at IV site, IV discontinued, due to patient being discharged, catheter intact. (MonJul 05, 2016 00:16 CVAN) SAFETY: Side rails up, Cart/Stretcher in lowest position, Family at bedside, Call light within reach, Hospital ID band on. (21:59 MVIL) ORDER DETAILS Order Name: CBC with Differential, Status: Active, Time: 21:31 &a-1R&a+25V*p+0X*r2998O*c202B*c15G*c2P*p-0X&a-25V&a+1R Name: Izzy Rodriguez : 1990 F25 MedRec: [id number] AcctNum: [id number] Prepared: MonJul 05, 2016 09:29 by Interface Page 2 of 10 pMD [facility] EMERGENCY RECORD 07/04/2016, User: MBRI, - Ordered for: DO Dawn Matthew, - Entered by: DO Dawn Matthew - Shanti Jul 04, 2016 21:31, - Quantity: 1, Order Name: Comprehensive Metabolic Panel, Status: Active, Time: 21:31 07/04/2016, User: MBRI, - Ordered for: DO Dawn Matthew, - Entered by: DO Dawn Matthew - Shanti Jul 04, 2016 21:31, - Quantity: 1, Order Name: CT Stone Protocol, Status: Active, Time: 22:33 07/04/2016, User: MBRI, - Ordered for: DO Dawn Matthew, - Entered by: DO Dawn Matthew - Shanti Jul 04, 2016 22:33, - Quantity: 1, Order Name: Lipase, Status: Active, Time: 21:31 07/04/2016, User: MBRI, - Ordered for: DO Dawn Matthew, - Entered by: DO Dawn Matthew - Shanti Jul 04, 2016 21:31, - Quantity: 1, Order Name: Test, Urine (BHCG), Status: Active, Time: 21:31 07/04/2016, User: MBRI, - Ordered for: DO Dawn Matthew, - Entered by: DO Dawn Matthew - Shanti Jul 04, 2016 21:31, - Quantity: 1, Order Name: SALINE LOCK, Status: Done, Time: 21:58 07/04/2016, User: MVIL, - Ordered for: DO Dawn Matthew, - Entered by: DO Dawn Matthew - Shanti Jul 04, 2016 21:31, - Quantity: 1, Order Name: Urinalysis w/ Rflx Microscopic, Status: Active, Time: 21:31 07/04/2016, User: MBRI, - Ordered for: DO Dawn Matthew, - Entered by: DO Dawn Matthew - Shanti Jul 04, 2016 21:31, - Quantity: 1. MEDICATION ADMINISTRATION SUMMARY Drug Name: cefTRIAXone injection, Dose Ordered: 1 g, Route: IV Piggy Back, Status: Given, Time: 23:50 07/04/2016, Drug Name: ketorolac injection, Dose Ordered: 30 mg, Route: IV Push, Status: Given, Time: 21:58 07/04/2016, Drug Name: sodium chloride 0.9 % intravenous, Dose Ordered: 1 L, Route: IV Fluid Infusion, Status: Given, Time: 21:57 07/04/2016, Detailed record available in Medication Service section. MEDICATION SERVICE cefTRIAXone injection: Order: cefTRIAXone injection (ceftriaxone sodium) - Dose: 1 g : IV Piggy Back Ordered by: Jay Dawn DO Entered by: Jay Dawn DO MonJul 04, 2016 23:39 Documented as given by: Karen Gottlieb RN MonJul 04, 2016 23:50 &a-1R&a+25V*p+0X*x1405A*c202B*c15G*c2P*p-0X&a-25V&a+1R Name: Izzy Rodriguez : 1990 F25 MedRec: [id number] AcctNum: [id number] Prepared: MonJul 05, 2016 09:29 by Interface Page 3 of 10 pMD [facility] EMERGENCY RECORD Patient, Medication, Dose, Route and Time verified prior to administration. Amount given: 1 g, IV SITE #1 IVPB or drip, initial infusion, IVPB mixed in: 100ml, Fluid: 0.9NS, via primary tubing, at 200 ml/hr, Connections checked prior to administration, Line traced prior to administration, Catheter placement confirmed via flush prior to administration, IV site without signs or symptoms of infiltration during medication administration, No swelling during administration, No drainage during administration, IV flushed after administration, Correct patient, time, route, dose and medication confirmed prior to administration, Patient advised of actions and side-effects prior to administration, Allergies confirmed and medications reviewed prior to administration, Patient in position of comfort, Side rails up, Cart in lowest position, Family at bedside, Call light in reach. : Follow Up : _IV SITE #1:_, Medication infusion discontinued, on MonJul 05, 2016 00:13, 25 minutes, ., Total amount infused: 100 ml, IV Discontinued with catheter intact, IV Line flushed after administration. (MonJul 05, 2016 00:13 CVAN) ketorolac injection: Order: ketorolac injection (ketorolac tromethamine) - Dose: 30 mg : IV Push Ordered by: Jay Dawn DO Entered by: Jay Dawn DO MonJul 04, 2016 21:40 , Acknowledged by: Vangie Fischer RN MonJul 04, 2016 21:44 Documented as given by: Mary Alexander RN MonJul 04, 2016 21:58 Patient, Medication, Dose, Route and Time verified prior to administration. Amount given: 30MG, IV SITE #1 IVP, initial medication, Catheter placement confirmed via flush prior to administration, IV site without signs or symptoms of infiltration during medication administration, No swelling during administration, No drainage during administration, IV flushed after administration, Correct patient, time, route, dose and medication confirmed prior to administration, Patient advised of actions and side-effects prior to administration, Allergies confirmed and medications reviewed prior to administration, Patient in position of comfort, Side rails up, Cart in lowest position, Family at bedside. sodium chloride 0.9 % intravenous: Order: sodium chloride 0.9 % intravenous (0.9 % sodium chloride) - Dose: 1 L : IV Fluid Infusion Ordered by: Jay Dawn DO Entered by: Jay Dawn DO MonJul 04, 2016 21:40 , Acknowledged by: Vangie Fischer RN MonJul 04, 2016 21:44 Documented as given by: Mary Alexander RN MonJul 04, 2016 21:57 Patient, Medication, Dose, Route and Time verified prior to administration. Amount given: 1000MLS, IV SITE #1 IV fluids established for hydration, IV SITE #1 into right forearm, via primary tubing, Catheter placement confirmed via flush prior to administration, IV &a-1R&a+25V*p+0X*d5056K*c202B*c15G*c2P*p-0X&a-25V&a+1R Name: Izzy Rodriguez : 1990 F25 MedRec: [id number] AcctNum: [id number] Prepared: MonJul 05, 2016 09:29 by Interface Page 4 of 10 pMD [facility] EMERGENCY RECORD site without signs or symptoms of infiltration during medication administration, No swelling during administration, No drainage during administration, IV flushed after administration, Correct patient, time, route, dose and medication confirmed prior to administration, Patient advised of actions and side-effects prior to administration, Allergies confirmed and medications reviewed prior to administration. HPI FLANK PAIN (21:54 MBRI) CHIEF COMPLAINT: Patient presents for evaluation of flank pain, on the right. HISTORIAN: History provided by patient. LOCATION FEMALE: Symptoms are localized, most severe in the right flank, Radiation, back to front, No migration of pain. QUALITY: Pain is sharp in nature, described as shooting. SEVERITY: Maximum severity of symptoms severe, Currently symptoms are moderate. TIME COURSE: Sudden onset of symptoms, 2, weeks ago, Symptoms are worsening, are intermittent, This episode started tonight and continued upon her arrival to the ED. No prior evaluation for this pain. She did call the ambulance for it one week ago and the paramedics told her it was possible PNA or anxiety per the patient. ASSOCIATED WITH FEMALE: No associated recent antibiotic use, No associated chills, No associated constipation, No associated diarrhea, No associated fever, Associated with flank pain, on the right, No associated groin pain, No associated hematemesis, No associated hematuria, Associated with loss of appetite, Associated with nausea, No associated trauma, No associated recent travel, No associated inability to tolerate oral intake, Associated with urinary tract infection signs or symptoms, frequency, No associated vomiting, No associated vaginal discharge, No associated vaginal bleeding. EXACERBATED BY: Patient's condition exacerbated by nothing. RELIEVED BY: Patient's condition relieved by nothing. ROS (21:54 MBRI) CONSTITUTIONAL: Negative constitutional review of systems, Historian denies chills, denies fever. EYES: Negative eye review of systems. ENT: Historian denies rhinorrhea, denies sore throat. CARDIOVASCULAR: Historian denies chest pain, denies dyspnea on exertion. RESPIRATORY: Historian denies cough, denies shortness of breath. GI: Negative gastrointestinal review of systems, Historian denies abdominal pain, denies diarrhea, denies nausea, denies vomiting. GENITOURINARY FEMALE: Historian reports dysuria, reports frequency, denies hematuria, denies incontinence, denies urine output changes, denies urinary retention. MUSCULOSKELETAL: Historian denies injury, Denies any &a-1R&a+25V*p+0X*y5760J*c202B*c15G*c2P*p-0X&a-25V&a+1R Name: Izzy Rodriguez : 1990 F25 MedRec: [id number] AcctNum: [id number] Prepared: MonJul 05, 2016 09:29 by Interface Page 5 of 10 pMD [facility] EMERGENCY RECORD musculoskeletal pain. SKIN: Negative skin review of systems, Historian denies skin changes. NEUROLOGIC: Negative neurologic review of systems, Historian denies focal weakness, denies sensory changes. HEMO/LYMPHATIC: Historian denies abnormal blood clotting, denies easy bruising. PAST MEDICAL HISTORY (21:31 MVIL) MEDICAL HISTORY: No past medical history, No past medical history. FEMALE SURGICAL HISTORY: Patient has no surgical history, Patient has no surgical history. PSYCHIATRIC HISTORY: Notes: HX OF ANXIETY, Psychiatric history includes, depression. SOCIAL HISTORY: Patient denies alcohol use, Patient denies drug use, Patient has no smoking history, Patient denies alcohol use, Patient denies drug use, Patient has no smoking history. PHYSICAL EXAM (21:54 MBRI) CONSTITUTIONAL: Vital Signs Reviewed, Nursing notes reviewed. HEAD: Head exam included findings of head atraumatic, normocephalic. EYES: Eye exam included findings of eyelids normal to inspection, Pupils equally round and reactive to light, Extraocular muscles intact. ENT: Pharynx exam normal, Mouth exam normal. NECK: Neck exam normal, no cervical adenopathy, no tenderness. RESPIRATORY CHEST: Respiratory exam included findings of no respiratory distress, Breath sounds clear, No wheezing, No rales, No rhonchi. CARDIOVASCULAR: Cardiovascular exam included findings of heart rate regular rate and rhythm, Heart sounds normal, Carotids normal. ABDOMEN FEMALE: Abdominal exam included findings of abdomen nontender, Bowel sounds normal, no distension, no mass, no pulsatile masses, no peritoneal signs, no rigidity, no guarding, no rebound. BACK: Back exam included findings of normal inspection, Costovertebral angle tenderness, on the right. UPPER EXTREMITY: Upper extremity exam included findings of inspection normal, Radial pulse normal, no cyanosis, no clubbing, no edema. LOWER EXTREMITY: Lower extremity exam included findings of inspection normal, femoral pulses normal, no cyanosis, no clubbing, no edema, no tenderness noted. NEURO: Neuro exam findings include patient oriented to person, place and time, Speech normal, no focal motor deficits. SKIN: Skin exam included findings of skin warm, dry, and normal in color. LAB INTERPRETATION (23:39 MBRI) &a-1R&a+25V*p+0X*j2777R*c202B*c15G*c2P*p-0X&a-25V&a+1R Name: Izzy Rodriguez : 1990 F25 MedRec: [id number] AcctNum: [id number] Prepared: MonJul 05, 2016 09:29 by Interface Page 6 of 10 pMD [facility] EMERGENCY RECORD INTERPRETATION: I reviewed the lab results. EVENTS TRANSFER: Triage to Emergency Emergency Room -04. (MonJul 04, 2016 21:26 MVIL) Removed from Emergency Emergency Room -04. (MonJul 05, 2016 00:26 CVAN) RADIOLOGYINTERPRETATION (23:39 MBRI) ABDOMEN: Abdomen/pelvis CT scan, without contrast negative, no appendicitis, no diverticulitis, no kidney stones, no obstruction, no free air, no hydronephrosis. STATION AGENT: Preliminary review of CT scans by, Radiologist. O2SAT INTERPRETATION (21:31 MBRI) O2SAT: Oxygen saturation interpretation: Normal. DOCTOR NOTES (23:40 MBRI) TEXT: Pt with Abd pain/flank pain, improved at this time. Studies reveal no issues requiring inpt hosp treatment. Pt eval is currently benign and no surgical etiology suspected. No suspected appendicitis, GB disease, abscess, SBO, perforation, peritonitis, or vasc etiology suspected at this time. Plan of care discussed with pt and they state understanding of the reasons for follow-up and/or return to ED for eval. Pt is currently stable for d/c home. Will continue home abx with suspected UTI based on findings noted tonight. PROBLEM LIST No recorded problems DIAGNOSIS (23:44 MBRI) FINAL: PRIMARY: pyelonephritis, ADDITIONAL: back pain. DISPOSITION PATIENT: Disposition Type: Discharge, Disposition: *Discharge Home, Condition: Improved. (23:44 MBRI) Patient left the department. (MonJul 05, 2016 00:26 CVAN) INSTRUCTION (23:46 MBRI) DISCHARGE: UTI PYELONEPHRITIS FEMALE ADULT. FOLLOWUP: [facility], /Nathan [address], [address] [place] [address], , Follow up with Primary Care Physician in 7 days. SPECIAL: Please return for any further issues or concerns, we would be happy to see you. We hope you feel better soon. Follow-up with your PCP in a week for recheck. PRESCRIPTION (23:43 MBRI) &a-1R&a+25V*p+0X*v3106H*c202B*c15G*c2P*p-0X&a-25V&a+1R Name: Izzy Rodriguez : 1990 F25 MedRec: [id number] AcctNum: [id number] Prepared: MonJul 05, 2016 09:29 by Interface Page 7 of 10 pMD [facility] EMERGENCY RECORD acetaminophen-codeine: TABLET : 300 mg-30 mg : ORAL : Quantity: 1 Unit: tab(s) Route: ORAL Schedule: every 4 hours prn Dispense: 20 May substitute. Refills: No Refills . NOTES: No refills. Cipro tablet: TABLET : 500 mg : ORAL : Quantity: 1 Unit: tab(s) Route: ORAL Schedule: 2 times a day Dispense: 14 May substitute. Refills: No Refills . NOTES: ^s=No refills No refills. Motrin: TABLET : 600 mg : ORAL : Quantity: 1 Unit: tab(s) Route: ORAL Schedule: every 6 hours PRN Dispense: 60 May substitute. Refills: No Refills POTENTIAL CONTRAINDICATED INTERACTION: ketorolac injection (ketorolac tromethamine) Override Rationale: Patient no longer on medication. NOTES: ^s=^s=No refills No refills No refills. IMAGING *SUPPLY CHARGE SHEET: Image captured from scanner. (MonJul 05, 2016 00:23 CVAN) *DISCHARGE INSTRUCTIONS RECEIPT: Image captured from scanner. (MonJul 05, 2016 00:27 KSPL) Page 2 added. Image captured from scanner. (MonJul 05, 2016 00:28 KSPL) ADMIN (MonJul 05, 2016 09:22 MBRI) DIGITAL SIGNATURE: DO Dawn Matthew. RESULTS LABORATORY: Lipase Collection DT: MonJul 04, 2016 22:02, Lipase 36 U/L, Range (8-78). (22:24 MBRI) Comprehensive Metabolic Panel Collection DT: MonJul 04, 2016 22:02, Sodium 139 mmol/L, Range (136-145), Potassium 3.6 mmol/L, Range (3.5-5.1), *Chloride 110 - H mmol/L, Range (98-107), *Carbon Dioxide 20 - L mmol/L, Range (22-29), Anion Gap 13 mmol/L, Range (10-20), BUN (Urea Nitrogen) 14 mg/dL, Range (7.0-18.7), Creatinine 0.74 mg/dL, Range (0.6-1.1), Estimated GFR-MDRD Greater than 90 , Reference Range for Estimated GFR: Greater than 90, mL/min/1.73 m2 NOTE: The MDRD equation has not been validated for use, with the elderly (over 70 years of age), women, patients with, serious comorbid condition or persons with extremes of body size, muscle, mass, or nutritional status. , &a-1R&a+25V*p+0X*g8320X*c202B*c15G*c2P*p-0X&a-25V&a+1R Name: Izzy Rodriguez : 1990 F25 MedRec: [id number] AcctNum: [id number] Prepared: MonJul 05, 2016 09:29 by Interface Page 8 of 10 pMD [facility] EMERGENCY RECORD Glucose 101 mg/dL, Range (70-105), Calcium 8.9 mg/dL, Range (7.8-10.44), Bilirubin, Total 0.3 mg/dL, Range (0.2-1.2), Protein, Total 7.2 g/dL, Range (6.0-8.3), NOTE: Plasma values are generally 0.3 to 0.5 g/dL higher than serum values, due to the presence of fibrinogen. , Albumin 4.2 g/dL, Range (3.5-5.0), Globulin 3.0 g/dL, Range (2.4-3.5), Alb/Glob Ratio 1.4 g/dL, Range (1.2-2.2), Alkaline Phosphatase 58 U/L, Range (40-150), AST (SGOT) 18 U/L, Range (5-34), ALT (SGPT) 22 U/L, Range (0-55). (22:24 MBRI) Urinalysis w/ Rflx Microscopic Collection DT: MonJul 04, 2016 22:11, Color Light yellow , Range (Yellow), Clarity Clear , Range (Clear), Specific Unity, Urine 1.020 , Range (1.005-1.030), pH, Urine 7.0 , Range (5.0-9.0), *Leukocyte Large - H , Range (Negative), Nitrite Negative , Range (Negative), Protein, Urine (Dipstick) Negative mg/dL, Range (Neg-Trace), Glucose, Urine (Dipstick) Negative mg/dL, Range (Negative), Ketone, Urine Negative mg/dL, Range (Negative), Urobilinogen 0.2 mg/dL, Range (0.2-1.0), Bilirubin Negative , Range (Negative), Blood, Urine Negative , Range (Negative). (22:24 MBRI) CBC with Differential Collection DT: MonJul 04, 2016 22:02, White Blood Cell (WBC) Count 7.6 thou/uL, Range (4.8-10.8), *Red Blood Cell (RBC) Count 4.09 - L mill/uL, Range (4.20-5.40), Hemoglobin 12.6 g/dL, Range (12.0-16.0), Hematocrit 37.7 %, Range (36.0-47.0), Mean Corpuscular Volume 92.3 fl, Range (81.0-99.0), Mean Corpuscular Hemoglobin 30.8 pg, Range (27.0-31.0), Mean Corpuscular HGB CONC 33.4 g/dL, Range (32.0-36.0), RBC Distribution Width 12.0 %, Range (11.5-14.5), Platelet Count 247 thou/uL, Range (130-400), *Mean Platelet Volume 5.8 - L fL, Range (7.4-10.4), %Neutrophils 50.2 %, Range (42.0-75.0), %Lymphocytes 35.8 %, Range (21.0-51.0), %Monocytes 8.0 %, Range (0.0-10.0), %Eosinophils 4.5 %, Range (0.0-10.0), *%Basophils 1.5 - H %, Range (0.0-1.0), #Neutrophils 3.8 thou/uL, Range (1.40-6.50), #Lymphocytes 2.7 thou/uL, Range (1.20-3.40), *#Monocytes 0.6 - H thou/uL, Range (0.11-0.59), #Eosinphils 0.3 thou/uL, Range (0.0-0.7), #Basophils 0.1 thou/uL, Range (0.0-0.2). (22:24 MBRI) Urine Microscopic Collection DT: MonJul 04, 2016 22:11, RBC/HPF 0-3 HPF, Range (0-3), *WBC/HPF 4-6 - H HPF, Range (0-3), Squamous Epithelial 0-3 HPF, Range (0-3), &a-1R&a+25V*p+0X*g9136M*c202B*c15G*c2P*p-0X&a-25V&a+1R Name: Izzy Rodriguez : 1990 F25 MedRec: [id number] AcctNum: [id number] Prepared: MonJul 05, 2016 09:29 by Interface Page 9 of 10 D [facility] EMERGENCY RECORD *Bacteria/HPF 2+ - H HPF, Range (None Seen). (22:32 MBRI) Urinalysis w/ Rflx Microscopic Collection DT: MonJul 04, 2016 22:11, Color Light yellow , Range (Yellow), Clarity Clear , Range (Clear), Specific Unity, Urine 1.020 , Range (1.005-1.030), pH, Urine 7.0 , Range (5.0-9.0), *Leukocyte Large - H , Range (Negative), Nitrite Negative , Range (Negative), Protein, Urine (Dipstick) Negative mg/dL, Range (Neg-Trace), Glucose, Urine (Dipstick) Negative mg/dL, Range (Negative), Ketone, Urine Negative mg/dL, Range (Negative), Urobilinogen 0.2 mg/dL, Range (0.2-1.0), Bilirubin Negative , Range (Negative), Blood, Urine Negative , Range (Negative). (22:32 [facility]) Test, Urine (BHCG) Collection DT: MonJul 04, 2016 22:35, Test - Urine (BHCG) NEGATIVE , Range (NEGATIVE), Method of sensitivity- Indeterminant: results should be repeated, after 48 hours. Positive: results may be detected as early as 4-5 days before a first missed menses. Elimination of BHCG-, Elimination following first trimester D&C: 29-44 Days , Elimination following term : 8-24 Days , Specific Unity 1.012 , Range (1.002-1.036), A dilute urine specimen may, not contain hostess party sales representative levels of hCG. If is still, suspected, a first morning urine specimen OR a random blood specimen should, be obtained from the patient 48-72 hours later and re-tested. , . (22:43 [facility]) Temple: BRYON=LUÍS Gottlieb, Karen KSPL=LUÍS Fischer, Vangie MBRI=DO Dawn Matthew MVIL=LUÍS Alexander, Mary &a-1R&a+25V*p+0X*y1687U*c202B*c15G*c2P*p-0X&a-25V&a+1R Name: Izzy Rodriguez : 1990 F25 MedRec: [id number] AcctNum: [id number] Prepared: MonJul 05, 2016 09:29 by Interface Page 10 of 10 [facility] MEDICATION RECONCILIATION You were seen in the Emergency Department on: MonJul 04, 2016 KNOWN ALLERGIES No Known Allergies MEDICATIONS GIVEN WHILE IN THE EMERGENCY DEPARTMENT sodium chloride 0.9 % intravenous (0.9 % sodium chloride) - Dose: 1 liter(s) : IV Fluid Infusion ketorolac injection (ketorolac tromethamine) - Dose: 30 milligram(s) : IV Push cefTRIAXone injection (ceftriaxone sodium) - Dose: 1 gram(s) : IV Piggy Back HOME MEDICATIONS None Notes from the emergency department Reviewed with family PRESCRIPTIONS (3) Printed (3) acetaminophen-codeine : TABLET : 300 mg-30 mg : ORAL Quantity: 1, Unit: tab(s), Route: ORAL, Schedule: every 4 hours prn, Dispense: 20 Cipro tablet : TABLET : 500 mg : ORAL Quantity: 1, Unit: tab(s), Route: ORAL, Schedule: 2 times a day, Dispense: 14 &a-1R&a+25V*p+0X*[id number]*c202B*c15G*c2P*p-0X&a-25V&a+1R Name: Izzy Rodriguez : 1990 F25 MedRec: [id number] AcctNum: [id number] Prepared: MonJul 05, 2016 09:29 by Interface pMD [facility]
--- NOTE | 2016-07-05 11:09 | CT ---
PRELIMINARY REPORT/[facility]/EMERGENCY AFTER HOURS PROCEDURE: EXAM: CT Abdomen and Pelvis Without Intravenous Contrast. CLINICAL HISTORY: 25 years old, female; Pain; Abdominal pain; Flank; Right; Patient HX: Pt presents to the er for righ t flank pain radiating to ruq abd. No urinary symptoms. ; TECHNIQUE: Axial computed tomography images of the abdomen and pelvis without intravenous contrast. Coronal reformatted images were created and reviewed. COMPARISON: No relevant prior studies available. FINDINGS: Lower thorax: No acute findings. ABDOMEN: Liver: Unremarkable. Gallbladder and bile ducts: Unremarkable. No calcified stones. No ductal dilation. Pancreas: Unremarkable. No ductal dilation. Spleen: Unremarkable. No splenomegaly. Adrenals: Unremarkable. No mass. Kidneys and ureters: Unremarkable. No obstructing stones. No hydronephrosis. Stomach and bowel: Unremarkable. No obstruction. No mucosal thickening. Appendix: No findings to suggest acute appendicitis. PELVIS: Bladder: Unremarkable. No stones. Reproductive: Unremarkable as visualized. ABDOMEN and PELVIS: Intraperitoneal space: Unremarkable. No free air. No significant fluid collection. Bones/joints: No acute fracture. No dislocation. Soft tissues: Unremarkable. Vasculature: Unremarkable. No abdominal aortic aneurysm. Lymph nodes: Unremarkable. No enlarged lymph nodes. IMPRESSION: No acute intrabdominal or pelvic pathology. Thank you for allowing us to participate in the care of your patient. Dictated and Authenticated by: Nate Smith MD 07/04/2016 11:05 PM Central Time ([place] \T\ [place]) FINAL REPORT CT OF THE ABDOMEN AND PELVIS WITHOUT CONTRAST: Date: 07/04/[address] of the abdomen and pelvis was done for evaluation of right flank pain with radiation to th e right upper quadrant. Axial slices were acquired and coronal reconstructions were done. No oral or IV contrast was used by request. FINDINGS: The lung bases are clear. The liver, spleen, pancreas, adrenal glands, gallbladder, kidneys, and abd ominal aorta all appear within normal limits given the limitations of a noncontrast scan. No gallsto albert were detected. The kidneys showed no sign of hydronephrosis or calculi. No ureteral calculi were seen. The bowel is nondistended with no sign of obstruction. There is perhaps a little increase in fecal m aterial in the colon. No inflammatory changes were seen around the colon. No bowel wall thickening w as noted. What I interpret to be the appendix is normal. There is perhaps some very mild increase in size and number of some of the mesenteric nodes in the right lower quadrant, but the finding is not blatant enough to confidently diagnose mesenteric adenitis. The pelvis shows no pelvic masses, free fluid, or inflammatory changes. The adnexal regions were unr emarkable. The lumbar spine showed no acute change. IMPRESSION: 1. No acute abdominal or pelvic findings. At most, mild constipation. 2. Minimal increase in some of the mesenteric nodes in the right lower quadrant, but not enough to confidently diagnose mesenteric adenitis at this time. Report in agreement with preliminary reading by M[facility]. POS: HOME
== END 2016-07-04 23:59 | disposition home or self-care (01) ==
LOC: BURERS 21:14
DX: N12 Tubulo-interstitial nephritis, not specified as acute or chronic (principal); M54.9 Dorsalgia, unspecified; F32.9 Major depressive disorder, single episode, unspecified; F41.9 Anxiety disorder, unspecified
CPT/HCPCS: 74176; 80053; 81003; 81015; 81025; 83690; 85025; 96361; 96365; 96375; J0696; J1885; J7050